=== PATIENT | female | born 1950 | race Caucasian/White ===

== ENCOUNTER 2017-11-20 15:07 | Emergency (ER) | payer MEDICARE, OTHER ==
[~2017-11-20] VITALS: Ht 160 cm; Wt 66.7 kg
[~2017-11-20 15:07] MED LIST: ASPIRIN EC81 MG PO; CLONAZEPAM0.5 MG PO; LINZESS PO; SYNTHROID25 MCG PO; [UNRECOGNIZED DRUG - OTHER] PO
--- OUTSIDE RECORDS SUMMARY | 2017-11-20 15:10 | XMS REPORT | Clinical Summary ---
Author Author [facility] Organization [facility] Address Unknown Phone Unavailable Care Team Providers Care Steamtable Att[employer] Name Role Phone Samson Singh MD PCP Allergies Active Allergy Reactions Severity Noted Date Comments Penicillins Other (See Comments) High 06/02/2016 convulsions Current Medications Prescription Sig. Disp. Refills Start End Date Status Date BIOTIN (APPEAREX ORAL) biotin 43358 mcg daily Active clonAZEPAM (KlonoPIN) 0.5 TAKE ONE (1) TABLET(S) BY Active MG tablet MOUTH THREE TIMES A DAY NEEDED FOR ANXIETY. levothyroxine (SYNTHROID, TAKE 1 TABLET(S) BY MOUTH 3 02/28/20 Active LEVOTHROID) 50 MCG tablet DAILY 16 ASCORBATE CALCIUM Take 1 tablet by mouth Active (VITAMIN C ORAL) daily. pedi mvi no.17 with Chew 1 tablet daily. Active fluoride (MULTIVITAMIN WITH FLUORIDE) 0.5 mg tablet,chewable lisinopril Take 10 mg by mouth Active (PRINIVIL,ZESTRIL) 10 MG daily. tablet coenzyme Q10 200 mg Take 200 mg by mouth Active capsule daily. CALCIUM/MAGNESIUM/VIT D3 Take 1 tablet by mouth Active (CALCIUM daily. Calcium 1200 mg CARB,[id number] D3 and Magnesium 600 mg and ORAL) vitamin d3 1000 Iu BIOTIN-KERATIN ORAL Take 1 tablet by mouth Active daily. linaclotide (LINZESS) 290 TAKE ONE (1) CAPSULE(S) Active mcg capsule BY MOUTH TWICE A DAY. phentermine 30 MG capsule TK ONE C PO QD Active rosuvastatin (CRESTOR) 10 TAKE ONE (1) TABLET(S) BY 3 08/20/19 Active MG tablet MOUTH EVERY DAY. 17 venlafaxine (EFFEXOR) 50 Take 50 mg by mouth 2 Active MG tablet (two) times a day. pantoprazole (PROTONIX) TAKE 1 TABLET BY MOUTH 0 04/02/20 Active 40 MG EC tablet EVERY MORNING AT 600 A.M. 17 predniSONE (DELTASONE) 10 TAKE 4 TABLETS BY MOUTH 0 02/24/20 Active mg tablet EVERY MORNING FOR 5 DAYS 17 THEN 2 EVERY MORNING FOR 5 DAYS THEN 1 EVERY MORNING FOR 5 DAYS WITH FOOD valACYclovir (VALTREX) Take 1,000 mg by mouth 3 0 02/19/20 Active 1000 MG tablet (three) times a day. for 17 7 days traMADol (ULTRAM) 50 mg TAKE ONE (1) TABLET(S) BY 0 02/28/20 Discontin tablet MOUTH 2 HOURS PRIOR TO 16 17 ued PROCEDURE, THEN TAKE 1 TABLET EVERY 6 HOURS NEEDED FOR PAIN. venlafaxine XR TAKE ONE (1) CAPSULE(S) 3 02/28/20 11/29/19 Discontin (EFFEXOR-XR) 150 MG 24 hr BY MOUTH DAILY. 16 17 ued capsule bisacodyl 5 mg tablet TAKE 2 TABLET BY MOUTH 11/29/19 Discontin DIRECTED 17 ued lactulose (CEPHULAC) 10 TAKE 30 ML(S) IN WATER BY 11/29/19 Discontin gram packet MOUTH TWICE A DAY. 17 ued polyethylene glycol USE DIRECTED 11/29/19 Discontin (GAVILYTE-G) 17 ued 236-22.74-6.74 -5.86 gram solution ALPRAZolam (XANAX) 0.25 TAKE ONE-HALF TABLET BY 1 03/16/20 05/25/20 Discontin MG tablet MOUTH EVERY SIX HOURS 17 17 ued NEEDED FOR ANXIETY phendimetrazine tartrate Take 1 tablet by mouth 0 04/20/20 05/25/20 Discontin 105 mg capsule, extended once daily. 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 07/03/2016 Cervico-occipital neuralgia 07/03/2016 Disorder of skin of trunk 07/03/2016 Herniation of cervical intervertebral disc without myelopathy 07/03/2016 Enthesopathy of elbow 07/03/2016 Lesion of ulnar nerve 07/03/2016 Old bucket handle tear medial meniscus 07/03/2016 Pain in extremity 07/03/2016 Cervical spondylosis with myelopathy 07/03/2016 Status post cervical spinal arthrodesis 06/19/2016 Status post cervical spinal fusion 06/18/2016 Encounters Date Type Specialty Care Team Description 11/12/2017 Office Visit Neurosurgery Darien Enriquez MD Bilateral carpal tunnel syndrome (Primary Dx); Cervical radiculopathy; Lesions of both ulnar nerves; Status post cervical spinal fusion; Status post cervical spinal arthrodesis 11/12/2017 [facility] Radiology Darien Enriquez MD Myelopathy, Encounter spondylogenic, cervical; Cervicalgia 11/12/2017 [facility] Radiology Darien Enriquez MD Cervical spondylosis with Encounter myelopathy; Myelopathy, spondylogenic, cervical; Cervicalgia; Arthritis of shoulder region, right; Acute strain of neck muscle, initial encounter 11/05/2017 Procedure Pass Radiology 11/05/2017 Orders Only Gaby Buckley Myelopathy, spondylogenic, cervical (Primary Dx); Cervicalgia 05/25/2017 Office Visit Darien Hopson MD 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 (Primary Dx); Status post cervical spinal arthrodesis 05/25/2017 [facility] Radiology Darien Enriquez MD Myelopathy, Encounter spondylogenic, cervical; Cervicalgia; Cervical spondylosis with myelopathy; Acute strain of neck muscle, initial encounter; Arthritis of shoulder region, right; Arthrodesis status 05/25/2017 Orders Only Gaby Buckley Cervical spondylosis with myelopathy (Primary Dx); Myelopathy, spondylogenic, cervical; Cervicalgia; Arthritis of shoulder region, right; Acute strain of neck muscle, initial encounter 05/12/2017 Orders Only Gaby Buckley Myelopathy, spondylogenic, cervical (Primary Dx); Cervicalgia; Cervical spondylosis with myelopathy; Acute strain of neck muscle, initial encounter; Arthritis of shoulder region, right; Arthrodesis status 01/15/2017 Telephone Orthopedic Surgery Kevon Lao MA 12/01/2016 Office Visit Orthopedic Surgery David Franco MD Rotator cuff impingement syndrome, right (Primary Dx) 11/28/2016 Office Visit Neurosurgery Darien Enriquez MD Cervical strain, acute, initial encounter (Primary Dx) 11/28/2016 [facility] Radiology Darien Enriquez MD Arthrodesis status; Encounter Myelopathy, spondylogenic, cervical 11/26/2016 [facility] Radiology David Franco MD Incomplete tear of right Encounter rotator cuff 11/26/2016 [facility] Radiology David Franco MD Incomplete tear of right Encounter rotator cuff 09/29/2016 Procedure Pass Radiology after 11/19/2016 Family History Medical History Relation Name Comments Osteoporosis Brother Scoliosis Brother Heart disease Maternal Grandfather Rheumatologic disease Mother Scoliosis Mother Relation Name Status Comments Brother Brother Maternal Grandfather Mother Social History Tobacco Use Types Packs/Day Years Used Date Never Smoker Smokeless Tobacco: Never Used Alcohol Use Drinks/Week oz/Week Comments Yes 1 Cans of Occasional drink in afternoon beer 1 Standard drinks or equivalent Sex Assigned at Date Recorded Not on file Last Filed Vital Signs Vital Sign Reading Time Taken Blood Pressure 117/84 11/28/2016 11:57 AM CDT Pulse 89 11/28/2016 11:57 AM CDT Temperature - - Respiratory Rate 16 11/26/2016 1:38 PM CDT Oxygen Saturation - - Inhaled Oxygen - - Concentration Weight 68.5 kg (151 lb) 11/12/2017 12:33 PM CDT Height 160 cm (5' 3") 11/12/2017 12:33 PM CDT Body Mass Index 26.75 11/12/2017 12:33 PM CDT Plan of Treatment Health Maintenance Due Date Last Done Comments COLONOSCOPY 1998 MAMMOGRAM 1998 ZOSTER VACCINE 2008 PNEUMOCOCCAL 2013 POLYSACCHARIDE VACCINE AGE 65 AND OVER PNEUMOCOCCAL-13 2013 INFLUENZA VACCINE 03/03/2018 Implants Implanted Type Area [facility] President Device Expiration Model / Identifier Date Serial / Lot Putty Clgn [facility] 0.75cc Human Anterior: [employer] 2019 [id number] / - [id number] - [id number] Tissue N/A SPINAL AND [id number] / Implanted: Qty: 1 on 06/18/2016 by Implants BIOLOGICS [id number] Darien Enriquez MD Instrument [id number] Kee 2 [place] IPM N/A: N/A [employer] [id number] / Trocar, Kee Needle (Other - Tl IMPLANT SOFAMOR DANEK / Retractor / Access), Disposable - DEVICES [id number] Implanted: Qty: 1 on 06/18/2016 by Darien Enriquez MD Cage [id number] Anatomic Ptc [id number] IPM N/A: N/A [employer] 2022 [id number] / - [id number] IMPLANT SOFAMOR DANEK / Implanted: Qty: 1 on 06/18/2016 by DEVICES [id number] Darien Enriquez MD Cage [id number] Anatomic Ptc [id number] IPM N/A: N/A [employer] 2017 [id number] / - [id number] IMPLANT SOFAMOR DANEK / Implanted: 06/18/2016 (Quantity not DEVICES [id number] on file) Pin Distrctn [place] 12mm Strl - Neurosurgi N/A: N/A AESCULAP SPINE [id number] / [id number] / Implanted: Qty: 2 on 06/18/2016 by Implants [id number] Darien Enriquez MD Plate Cerv 23mm [place] Elite - Spinal N/A: N/A [employer] [id number] / [id number] Implants SPINAL AND / Implanted: 06/18/2016 (Quantity not BIOLOGICS on file) Screw Spinal Slf-Drl Jacob 4x15mm - Spinal N/A: N/A [employer] [id number] / [id number] Implants SPINAL AND / Implanted: 06/18/2016 (Quantity not BIOLOGICS on file) Procedures Procedure Name Priority Date/Time Associated Diagnosis Comments CO ARTHROCENTESIS Routine 12/04/2016 Rotator cuff impingement Results for this ASPIR&/INJ MAJOR JT/BURSA 9:32 AM CDT syndrome, right procedure are in the W/O US results section. after 11/19/2016 Results * MRI Cervical Spine W Wo Contrast (11/12/2017 1:08 PM) Specimen Performing Laboratory [address] [address] Narrative EXAMINATION: MRI CERVICAL SPINE W WO CONTRAST CLINICAL HISTORY: M47.12 Other spondylosis with myelopathycervical region, M54.2 Cervicalgia, right arm weaknessneck pain COMPARISON:Cervical MRI dated May 27, 2016 TECHNIQUE: Multiplanar multisequence pre and post contrast enhanced examination was performed of the cervical spine. FINDINGS: Vertebral body heights are maintained. The cervicomedullary junction is unremarkable. No cord signal abnormality identified. No focal marrow lesions. No masses are present in the visualized prevertebral soft tissues. No enhancing lesion identified on the postcontrast images. Anterior plate and screws are noted at C4-5. Axial images through the disc spaces demonstrate the following: C1-C2: There is narrowing of the atlantoaxial interval with spurring. There is no significant stenosis. C2-C3: No significant posterior disc disease, spinal canal or neural foraminal stenosis. C3-C4: Uncovertebral arthrosis and facet disease results in mild left foraminal narrowing. C4-C5: Anterior fusion is noted at this level. There is minimal bilateral foraminal narrowing. The canal is patent. C5-C6: No significant posterior disc disease, spinal canal or neural foraminal stenosis. C6-C7: There is disc bulge with mild effacement ventral thecal sac without narrowing. AP dimension still measures 9.9 mm. There is minimal left foraminal narrowing. C7-T1: No significant posterior disc disease, spinal canal or neural foraminal stenosis. No significant posterior disc disease, spinal canal or neural foraminal stenosis at other visualized levels. IMPRESSION: Postoperative fusion changes are noted anteriorly at C4-5 with good alignment of the cervical spine without significant canal or foraminal stenosis. No acute osseous abnormality or enhancing abnormality identified. [id number] Procedure Note Hm Interface, Radiology Results - 11/12/2017 4:01 PM CDT EXAMINATION: MRI CERVICAL SPINE W WO CONTRAST CLINICAL HISTORY: M47.12 Other spondylosis with myelopathy cervical region, M54.2 Cervicalgia, right arm weakness neck pain COMPARISON: Cervical MRI dated May 27, 2016 TECHNIQUE: Multiplanar multisequence pre and post contrast enhanced examination was performed of the cervical spine. FINDINGS: Vertebral body heights are maintained. The cervicomedullary junction is unremarkable. No cord signal abnormality identified. No focal marrow lesions. No masses are present in the visualized prevertebral soft tissues. No enhancing lesion identified on the postcontrast images. Anterior plate and screws are noted at C4-5. Axial images through the disc spaces demonstrate the following: C1-C2: There is narrowing of the atlantoaxial interval with spurring. There is no significant stenosis. C2-C3: No significant posterior disc disease, spinal canal or neural foraminal stenosis. C3-C4: Uncovertebral arthrosis and facet disease results in mild left foraminal narrowing. C4-C5: Anterior fusion is noted at this level. There is minimal bilateral foraminal narrowing. The canal is patent. C5-C6: No significant posterior disc disease, spinal canal or neural foraminal stenosis. C6-C7: There is disc bulge with mild effacement ventral thecal sac without narrowing. AP dimension still measures 9.9 mm. There is minimal left foraminal narrowing. C7-T1: No significant posterior disc disease, spinal canal or neural foraminal stenosis. No significant posterior disc disease, spinal canal or neural foraminal stenosis at other visualized levels. IMPRESSION: Postoperative fusion changes are noted anteriorly at C4-5 with good alignment of the cervical spine without significant canal or foraminal stenosis. No acute osseous abnormality or enhancing abnormality identified. [facility] [id number] * Estimated GFR (11/12/2017 12:33 PM) Component Value Ref Range GFR Non Af Amer 83 mL/min/1.73 m2 GFR Af Amer >90 mL/min/1.73 m2 Comment: Chronic kidney disease: <60 mL/min/1.73m2 Kidney failure: <15 mL/min/1.73m2 The estimated GFR is calculated from the IDMS-traceable Modification of Diet in Renal Disease Equation. The accuracy of the calculation is poor when the creatinine is normal. Calculated values >90 mL/min/1.73m2 are not reported. This equation has not been validated in children (<18 years), women, the elderly (>70 years), or ethnic groups other than Caucasians and Americans. Specimen Performing Laboratory Blood [facility] DEPARTMENT OF PATHOLOGY AND GENOMIC MEDICINE [address] [place] [id number] * POC creatinine (11/12/2017 12:33 PM) Component Value Ref Range POC creatinine 0.7 0.5 - 0.9 mg/dl Comment: Meter ID: [id number] Lead Software Engineer: Jewel Ribera Specimen Performing Laboratory Blood [facility] DEPARTMENT OF PATHOLOGY AND GENOMIC MEDICINE [address] [place] [id number] * XR Cervical Spine Complete w flex/ext (11/12/2017 11:55 AM) Only the most recent of 3 results within the time period is included. Specimen Performing Laboratory [facility] [address] [place] [address] Narrative EXAMINATION: XR CERVICAL SPINE COMPLETE W FLEX EXT CLINICAL HISTORY: M47.12 Other spondylosis with myelopathycervical region, M47.12 Other spondylosis with myelopathycervical region, f u 1 month due to recurring pain around neck COMPARISON:Cervical x-ray dated May 25, 2017 IMPRESSION: 7 views of the cervical spine were obtained. Anterior fusion hardware is again noted at C4-5 with interbody graft. Flexion-extension imaging shows no significant interbody motion between flexion or extension. There is mild fixed 1 to 2 mm anterolisthesis of C5. There is osteophytosis noted anteriorly at C6-7. Oblique images shows no significant osseous foraminal narrowing on the right. There is suggestion of some degree of osseous foraminal narrowing on the left at C6-7. Correlate for a left C7 radiculopathy to determine significance. There is no fracture, facet joint widening or acute osseous abnormality identified. Hardware appears intact and in stable position. [facility] [id number] Procedure Note Interface, Radiology Results - 11/12/2017 1:58 PM CDT EXAMINATION: XR CERVICAL SPINE COMPLETE W FLEX EXT CLINICAL HISTORY: M47.12 Other spondylosis with myelopathy cervical region, M47.12 Other spondylosis with myelopathy cervical region, f u 1 month due to recurring pain around neck COMPARISON: Cervical x-ray dated May 25, 2017 IMPRESSION: 7 views of the cervical spine were obtained. Anterior fusion hardware is again noted at C4-5 with interbody graft. Flexion-extension imaging shows no significant interbody motion between flexion or extension. There is mild fixed 1 to 2 mm anterolisthesis of C5. There is osteophytosis noted anteriorly at C6-7. Oblique images shows no significant osseous foraminal narrowing on the right. There is suggestion of some degree of osseous foraminal narrowing on the left at C6-7. Correlate for a left C7 radiculopathy to determine significance. There is no fracture, facet joint widening or acute osseous abnormality identified. Hardware appears intact and in stable position. [id number] * Large Joint Arthrocentesis (12/04/2016 9:32 AM) Narrative David Franco MD 12/04/20169:32 AM Large Joint Arthrocentesis Consent given by: patient Site marked: site marked Timeout: Immediately prior to procedure a time out was called to verify the correct patient, procedure, equipment, it support engineer and site/side marked as required Supporting Documentation Indications: pain Procedure Details Preparation: Patient was prepped and draped in the usual sterile fashion Ultrasound guided: no Location: shoulder - R glenohumeral Right side: Needle size: 22 G Approach: posterior Right shoulder medications administered: 80 mg methylPREDNISolone acetate 80 mg/mL; 10 mL lidocaine 10 mg/mL (1 %); 2 mL bupivacaine 0.5 % (5 mg/mL) Patient tolerance: patient tolerated the procedure well with no immediate complications * MRI Shoulder W Contrast Right (11/26/2016 3:27 PM) Specimen Performing Laboratory [address] [address] Narrative EXAMINATION:MRI SHOULDER W CONTRAST RIGHT CLINICAL HISTORY:BONE PAINSHOULDER Order diagnosis - Incomplete rotator cuff tear or rupture of right shouldernot specified as traumatic TECHNIQUE:Multiplanar multisequence MR imaging of the right shoulder was performed following intra-articular administration of gadolinium contrast. COMPARISON:Radiograph, 06/02/2016 IMPRESSION: ROTATOR CUFF: Motion artifact degrades image quality and decreases sensitivity of exam. A high-grade undersurface tear is noted posteriorly in the distal supraspinatus tendon measuring 9 mm sagittal with retraction up to 6 mm, and there is a small amount of contrast in the overlying subacromial-subdeltoid bursa, indicating a tiny site of communication through the bursal surface, likely posteriorly and proximally, series 7 images 4 and 5. Detail limited by motion artifact. No significant muscular atrophy. Mostly interstitial partial-thickness tearing anteriorly in the infraspinatus distal tendon, with a tiny site of truncation through the articular surface posteriorly, series 7 image 5. Overall, this tear measures 10 mm sagittal, with retraction up to 12 mm, and involves greater than 50% of tendon thickness. No significant atrophy. Teres minor is well-maintained. Subscapularis tendinosis, mild. LABRUM: Degenerative fraying of the superior labrum. No discrete tear identified. BICEPS TENDON: The long head of the biceps tendon is within the bicipital groove. The biceps labral complex is intact. GLENOHUMERAL JOINT: Alignment is well maintained.No focal cartilage defects identified. BONE MARROW: Cystic formation in the greater tuberosity humeral head related to the aforementioned rotator cuff pathology. A stippled T2 hyperintense intramedullary lesion in the humeral neck measuring 14 mm indicative of a benign enchondroma. Reactive change secondary to AC joint arthrosis. AC JOINT: Hypertrophic changes AC joint degenerative in etiology. Abnormal marrow signal in both sides of the joint, with mild capsular edema and a tiny effusion, indicating recent mild AC sprain and stress response. Coracoclavicular ligament is well-maintained. Acromion has a horizontal lateral slope and is type II morphology. Slight downward anterior slope. SOFT TISSUES: Axillary pouch intact. SUMMARY: 1. High-grade undersurface supraspinatus tear with a full-thickness perforation through the bursal surface posteriorly. High-grade undersurface infraspinatus tear. Mild subscapularis tendinosis. 2.Recent mild AC sprain, and bone contusion or stress response on both sides of the joint. [facility]-[id number] Procedure Note [facility], Radiology Results Incoming - 11/26/2016 4:01 PM CDT EXAMINATION: MRI SHOULDER W CONTRAST RIGHT CLINICAL HISTORY: BONE PAIN SHOULDER Order diagnosis - Incomplete rotator cuff tear or rupture of right shoulder not specified as traumatic TECHNIQUE: Multiplanar multisequence MR imaging of the right shoulder was performed following intra-articular administration of gadolinium contrast. COMPARISON: Radiograph, 06/02/2016 IMPRESSION: ROTATOR CUFF: Motion artifact degrades image quality and decreases sensitivity of exam. A high-grade undersurface tear is noted posteriorly in the distal supraspinatus tendon measuring 9 mm sagittal with retraction up to 6 mm, and there is a small amount of contrast in the overlying subacromial-subdeltoid bursa, indicating a tiny site of communication through the bursal surface, likely posteriorly and proximally, series 7 images 4 and 5. Detail limited by motion artifact. No significant muscular atrophy. Mostly interstitial partial-thickness tearing anteriorly in the infraspinatus distal tendon, with a tiny site of truncation through the articular surface posteriorly, series 7 image 5. Overall, this tear measures 10 mm sagittal, with retraction up to 12 mm, and involves greater than 50% of tendon thickness. No significant atrophy. Teres minor is well-maintained. Subscapularis tendinosis, mild. LABRUM: Degenerative fraying of the superior labrum. No discrete tear identified. BICEPS TENDON: The long head of the biceps tendon is within the bicipital groove. The biceps labral complex is intact. GLENOHUMERAL JOINT: Alignment is well maintained. No focal cartilage defects identified. BONE MARROW: Cystic formation in the greater tuberosity humeral head related to the aforementioned rotator cuff pathology. A stippled T2 hyperintense intramedullary lesion in the humeral neck measuring 14 mm indicative of a benign enchondroma. Reactive change secondary to AC joint arthrosis. AC JOINT: Hypertrophic changes AC joint degenerative in etiology. Abnormal marrow signal in both sides of the joint, with mild capsular edema and a tiny effusion, indicating recent mild AC sprain and stress response. Coracoclavicular ligament is well-maintained. Acromion has a horizontal lateral slope and is type II morphology. Slight downward anterior slope. SOFT TISSUES: Axillary pouch intact. SUMMARY: 1. High-grade undersurface supraspinatus tear with a full-thickness perforation through the bursal surface posteriorly. High-grade undersurface infraspinatus tear. Mild subscapularis tendinosis. 2.Recent mild AC sprain, and bone contusion or stress response on both sides of the joint. [facility]-[id number] * FL Arthrogram Shoulder Right (11/26/2016 3:00 PM) Specimen Performing Laboratory [facility] [address] [place] [address] Narrative [place] ARTHROGRAM SHOULDER RIGHT CLINICAL INDICATION:SHOULDER PAINROTATOR CUFF TEAR IMPINGEMENT SUSPECTED Order diagnosis - Incomplete rotator cuff tear or rupture of right shouldernot specified as traumatic COMMENTS: After obtaining appropriate informed consent specifically explaining the risk of infection, pain, bleeding, allergic reaction and/or tissue damage amongst other possibilities and explaining other options, the right shoulder was prepped and draped in standard fashion. Under fluoroscopic guidance and using standard sterile technique with local lidocaine for anesthesia, a 22 gauge needle was advanced into the joint space.Intra-articular placement was confirmed by a test injection of iodinated contrast. Subsequently, dilute gadolinium and iodinated contrast ( in approximately 1:100 dilution) was injected to fill the joint space. Arthrographic images demonstrate no leak of contrast from the glenohumeral articulation, artifact noted. The needle was removed. The patient tolerated procedure well without immediate complicating process evident. DOSE: 2.41 mGy (ka,r) IMPRESSION: Successful right shoulder injection as detailed above.Correlation with MR arthrogram to follow recommended. Thank you for allowing us to participate in the care of your patient [facility]-[id number] Procedure Note Hm [facility], Radiology Results Incoming - 11/26/2016 3:29 PM CDT FL ARTHROGRAM SHOULDER RIGHT CLINICAL INDICATION: SHOULDER PAIN ROTATOR CUFF TEAR IMPINGEMENT SUSPECTED Order diagnosis - Incomplete rotator cuff tear or rupture of right shoulder not specified as traumatic COMMENTS: After obtaining appropriate informed consent specifically explaining the risk of infection, pain, bleeding, allergic reaction and/or tissue damage amongst other possibilities and explaining other options, the right shoulder was prepped and draped in standard fashion. Under fluoroscopic guidance and using standard sterile technique with local lidocaine for anesthesia, a 22 gauge needle was advanced into the joint space. Intra-articular placement was confirmed by a test injection of iodinated contrast. Subsequently, dilute gadolinium and iodinated contrast ( in approximately 1:100 dilution) was injected to fill the joint space. Arthrographic images demonstrate no leak of contrast from the glenohumeral articulation, artifact noted. The needle was removed. The patient tolerated procedure well without immediate complicating process evident. DOSE: 2.41 mGy (ka,r) IMPRESSION: Successful right shoulder injection as detailed above. Correlation with MR arthrogram to follow recommended. Thank you for allowing us to participate in the care of your patient [facility]-[id number] after 11/19/2016 Insurance Payer Benefit Subscriber ID Type Phone Address Plan / Group MEDICARE MEDICARE xxxxxxxxxx Medicare [place], [place] PART A AND B [employer]
[2017-11-20] MEDS ORDERED: SODIUM CHLORIDE 0.9% 1000ML 1,000 ML IV STA (15:17)
[2017-11-20] MEDS ORDERED: MORPHINE SULFATE 4 MG/ML SYR IV STA (15:17)
[2017-11-20] MEDS ORDERED: ONDANSETRON HCL INJ 2 MG/ML VIAL IV STA (15:17)
[2017-11-20] MEDS ORDERED: MORPHINE SULFATE 2 MG/ML SYR ONE (15:30)
[2017-11-20] MEDS ORDERED: MAGNESIUM/ALUMINUM/SIMETHICONE 30 ML UDC PO ONE (15:30)
[2017-11-20] MEDS ORDERED: LIDOCAINE VISC 2% SOLN 15 ML UDC PO ONE (15:30)
[2017-11-20] MEDS ORDERED: DONNATAL/LIDOCAINE/MAALOX 30 ML SUSP PO ONE (15:45)
--- NOTE | 2017-11-20 16:03 | Diagnostic Imaging Report ---
PROCEDURE: A single AP view of the chest. COMPARISON: None. INDICATIONS: LEFT SIDE ABDOMINAL PAIN, TODAY, NAUSEA FINDINGS: Lines/tubes: None. Lungs: The lungs are well inflated and clear. There is no evidence of pneumonia or pulmonary edema. Pleura: There is no pleural effusion or pneumothorax. Heart and mediastinum: The heart and the mediastinum are unremarkable. Bones: No acute bony abnormality. IMPRESSION: 1. No acute cardiopulmonary abnormalities. Marvin Elizondo M.D. Dictated by: Marvin Elizondo M.D. on 11/20/2017 at 16:03 Electronically approved by: Marvin Elizondo M.D. on 11/20/2017 at 16:03
[2017-11-20 16:20] LABS: BASOPHILS % 0.3 % (0.0-1.0); EOSINOPHILS # (AUTO) 0.1 (0.0-0.4); EOSINOPHILS % 1.8 % (0.0-6.0); HEMATOCRIT 42.5 % (34.2-44.1); HEMOGLOBIN 14.3 g/dL (12.0-16.0); LYMPHOCYTES # (AUTO) 2.9 (1.0-3.2); LYMPHOCYTES % 36.6 % (18.0-39.1); MEAN CORPUSCULAR HEMOGLOBIN 30.4 pg (28-32); MEAN CORPUSCULAR HGB CONC 33.6 g/dL (31-35); MEAN CORPUSCULAR VOLUME 90.4 fL (81-99); MONOCYTES # (AUTO) 0.6 (0.2-0.8); MONOCYTES % 8.1 % (4.4-11.3); NEUTROPHILS # (AUTO) 4.2 (2.1-6.9); NEUTROPHILS % 52.9 % (38.7-80.0); PLATELET COUNT 249 x10e3/uL (140-360); RED CELL DISTRIBUTION WIDTH 12.4 % (11.7-14.4)
[2017-11-20 16:22] LABS: CLARITY,URINE CLEAR (CLEAR); COLOR,URINE YELLOW (YELLOW); KETONES,URINE NEGATIVE (NEGATIVE); NITRITE,URINE NEGATIVE (NEGATIVE); PROTEIN,URINE DIPSTICK NEGATIVE (NEGATIVE); URINE UROBILINOGEN 1 mg/dL (0.2 - 1)
[2017-11-20 16:23] LABS: BILIRUBIN,URINE NEGATIVE (NEGATIVE); LEUKOCYTE ESTERASE ,URINE NEGATIVE (NEGATIVE)
[2017-11-20 16:27] LABS: INR 0.91; PROTHROMBIN TIME 11.5 seconds (11.9-14.5)
[2017-11-20 16:30] LABS: PARTIAL THROMBOPLASTIN TIME 23.1 seconds (23.8-35.5)
[2017-11-20 16:34] LABS: BACTERIA,URINE RARE /HPF; EPITHELIAL CELLS,URINE MODERATE /LPF; MUCUS,URINE MANY (RARE); RBC,URINE 0-5 /HPF (0-5); WBC,URINE (MAN) 0-5 /HPF (0-5)
[2017-11-20 16:38] LABS: ALANINE AMINOTRANSFERASE 32 IU/L (0-55); ALBUMIN 4.1 g/dL (3.5-5.0); ALBUMIN/GLOBULIN RATIO 1.4 (0.8-2.0); ALKALINE PHOSPHATASE 79 IU/L (40-150); AMYLASE 52 U/L (25-125); ANION GAP 14.6 mmol/L (8-16); BLOOD UREA NITROGEN 16 mg/dL (7-26); BUN/CREATININE RATIO 21 (6-25); CALCIUM 9.7 mg/dL (8.4-10.2); CARBON DIOXIDE 26 mmol/L (22-29); CHLORIDE 101 mmol/L (98-107); CREATINE KINASE 66 IU/L (29-168); CREATININE, SERUM 0.76 mg/dL (0.57-1.11); EST GLOMERULAR FILTRATION RATE > 60 ML/MIN (60-); GLUCOSE 106 mg/dL (74-118); LIPASE 35 U/L (8-78); POTASSIUM 3.6 mmol/L (3.5-5.1); SODIUM 138 mmol/L (136-145)
--- NOTE | 2017-11-20 17:51 | Diagnostic Imaging Report ---
PROCEDURE: CT ABDOMEN AND PELVIS WITH CONTRAST TECHNIQUE: The abdomen and pelvis were scanned utilizing a multidetector helical scanner from the diaphragm to the lesser trochanter after the IV administration of 100 cc of Isovue 370. Coronal and sagittal multiplanar reformations were obtained. COMPARISON: None. INDICATIONS: left side abdominal pain FINDINGS: LOWER THORAX: 6-7 mm pulmonary nodule in the left lower lobe (series 2, image 2). HEPATOBILIARY: Normal hepatic size and contour. No focal hepatic lesions. No intra-or extrahepatic biliary ductal dilation. Moderate diffuse gallbladder wall thickening, which measures approximately 5 mm. No radiopaque stones are identified. No pericholecystic fluid. SPLEEN: No splenomegaly. PANCREAS: No focal masses or ductal dilatation. A 4 mm hypodense lesion in the distal pancreatic tail (coronal image 50, and sagittal image 100) measures fat density and likely represents invagination of peripancreatic fat. ADRENALS: No adrenal nodules. KIDNEYS/URETERS: No hydronephrosis, stones, or solid mass lesions. PELVIC ORGANS/BLADDER: Bladder is unremarkable. Uterus is absent. No adnexal masses. PERITONEUM / RETROPERITONEUM: No free air or fluid. LYMPH NODES: No lymphadenopathy. VESSELS: Atherosclerotic calcification of the infrarenal abdominal aorta. Celiac trunk, superior and inferior mesenteric, and bilateral renal arteries are patent. Portal, superior mesenteric, and splenic veins are patent. GI TRACT: No bowel dilation or evidence of obstruction. Appendix is well identified and normal in caliber. No pericolonic inflammatory changes. BONES AND SOFT TISSUES: No acute bony abnormalities. No aggressive lytic lesions. Soft tissues are grossly unremarkable. Calcified injection granuloma in the left gluteal region. IMPRESSION: 1. No acute abdominopelvic abnormalities. Specifically, no acute abnormal findings in the left abdomen to explain the patient's pain. 2. Moderate circumferential gallbladder wall thickening. No radiopaque stones or pericholecystic fluid are identified. No biliary ductal dilation. Right upper quadrant ultrasound would be helpful for further evaluation. Marvin Elizondo M.D. Dictated by: Marvin Elizondo M.D. on 11/20/2017 at 17:52 Electronically approved by: Marvin Elizondo M.D. on 11/20/2017 at 17:52
[2017-11-20 18:53] VITALS: BP 125/71
[2017-11-21] MEDS ORDERED: IOPAMIDOL 370 MG/ML 200 ML INFUS..BTL INJ ONE (03:59)
[2017-11-21] MEDS ORDERED: SODIUM CHLORIDE 0.9% 50ML 50 ML ONE (03:59)
== END 2017-11-20 18:56 | disposition home or self-care (01) ==
LOC: ER 15:07
DX: R10.13 Epigastric pain (principal); R10.32 Left lower quadrant pain; R11.0 Nausea; K29.00 Acute gastritis without bleeding
CPT/HCPCS: 36415; 71045; 74177; 80053; 81001; 82150; 82550; 82553; 83690; 84484; 85025; 85610; 85730; 87086; 93005; 96374; 99284; J2270; J2405; J7030

== ENCOUNTER 2018-06-01 13:00 | Outpatient (RCR) | payer MEDICARE, OTHER | END 2018-06-02 | LOC: PT 13:00 | PROVIDERS: ATTEND Neurological Surgery | DX: M50.120 Mid-cervical disc disorder, unspecified level (principal); M62.81 Muscle weakness (generalized) | CPT/HCPCS: 97010; 97110 ×3; 97140 ×2; 97162; G8984; G8985 ==

== ENCOUNTER 2018-06-10 13:00 | Outpatient (RCR) | payer MEDICARE, OTHER | END 2018-07-02 | LOC: PT 13:00 | PROVIDERS: ATTEND Neurological Surgery | DX: M50.120 Mid-cervical disc disorder, unspecified level (principal); M62.81 Muscle weakness (generalized) | CPT/HCPCS: 97110 ×2; G8985; G8986 ==

== ENCOUNTER → 2024-09-29 | Day surgery (SDC) | payer MEDICARE, OTHER ==
[2024-09-27 11:02] LABS: BASOPHILS % 0.5 % (0.0-1.0); EOSINOPHILS # (AUTO) 0.1 (0.0-0.4); EOSINOPHILS % 3.3 % (0.0-6.0); HEMATOCRIT 40.2 % (34.2-44.1); HEMOGLOBIN 13.5 g/dL (12.0-16.0); LYMPHOCYTES # (AUTO) 1.7 (1.0-3.2); MEAN CORPUSCULAR HEMOGLOBIN 30.5 pg (28-32); MEAN CORPUSCULAR HGB CONC 33.6 g/dL (31-35); MONOCYTES # (AUTO) 0.5 (0.2-0.8); MONOCYTES % 10.6 % (4.4-11.3); NEUTROPHILS # (AUTO) 1.9 (2.1-6.9); NEUTROPHILS % 45.4 % (38.7-80.0); PLATELET COUNT 187 x10e3/uL (140-360); RED BLOOD COUNT 4.42 x10e6/uL (3.6-5.1); RED CELL DISTRIBUTION WIDTH 12.8 % (11.7-14.4); WHITE BLOOD COUNT 4.25 x10e3/uL (4.8-10.8)
[~2024-09-29] MED LIST changes: +BENEFIBER1 EAC1 PO; +CLOBETASOL PROP15 G1 TOP; +ESTRACE42.5 GM VG; +GATIFLOXACIN(OPTH) 5 ML LIQD ONE; +HYDROXYZINE HCL25 MG PO; +LEVOCETIRIZINE D5 MG PO; +LEVOTHYROXINE50 MCG PO; +LIDOCAINE HCL 2% LOCAL INJ 5 ML SDV VIAL INJ ONE; +LOSARTAN POTASS25 MG PO; +MAGNESIUM100 MG PO; +MULTI-VITAMIN1 EACH PO; +OMEPRAZOLE40 MG PO; +ONDANSETRON HCL INJ 2MG/ML 2ML 2 MG/ML VIAL ONE; +POTASSIUM99 M1 PO; +PROPOFOL IV EMULSION 10 MG/ML 20 ML VIAL ONE; +ROSUVASTATIN CA10 MG PO; +TETRACAINE HCL 0.5% OPTH SOLN 4 ML BTL ONE; +TUMERIC PO; +VITAMIN B121000 MCG PO; +WELLBUTRIN XL300 MG PO; +ZINC10 MG PO; +[UNRECOGNIZED DRUG - OTHER] PO
[2024-09-29] MEDS: LACTATED RINGER'S 1,000 ML ONE (07:54)
[2024-09-29] MEDS: PHENYLEPHRINE HCL 2 ML DROPS ONE (07:55)
[2024-09-29] MEDS: CYCLOPENTOLATE HCL 2% OPTH SOLN 2 ML BTL OP ONE (07:55)
[2024-09-29] MEDS: GATIFLOXACIN(OPTH) 5 ML LIQD ONE (07:56)
[2024-09-29 08:23] LABS: ANION GAP 15.3 mmol/L (8-16); CALCIUM 8.8 mg/dL (8.4-10.2); CREATININE, SERUM 0.81 mg/dL (0.57-1.11); POTASSIUM 4.3 mmol/L (3.5-5.1)
[2024-09-29 08:58] VITALS: TEMP 98
[2024-09-29] MEDS: ACETAMINOPHEN/CODEINE 300MG - 30MG TAB ONE (09:05)
[2024-09-29 09:10] VITALS: BP 156/94; PULSE 67; RESP 16; O2SAT 98
== END | disposition home or self-care (01) ==
LOC: OR 06:07
PROVIDERS: ATTEND Ophthalmology
DX: H25.11 Age-related nuclear cataract, right eye (principal); G47.33 Obstructive sleep apnea (adult) (pediatric); I10 Essential (primary) hypertension; E78.5 Hyperlipidemia, unspecified; E03.9 Hypothyroidism, unspecified; K21.9 Gastro-esophageal reflux disease without esophagitis; F32.A Depression, unspecified; Z88.0 Allergy status to penicillin; Z01.810 Encounter for preprocedural cardiovascular examination; Z01.812 Encounter for preprocedural laboratory examination; Z79.899 Other long term (current) drug therapy; Z86.73 Personal history of transient ischemic attack (TIA), and cerebral infarction without residual deficits
CPT/HCPCS: 36415 ×2; 66984; 80048; 85025; 93005; J2003; J2405; J2704; J7121; V2632

== ENCOUNTER → 2024-11-24 | Day surgery (SDC) | payer MEDICARE ==
[2024-11-23 14:53] LABS: BASOPHILS % 0.5 % (0.0-1.0); EOSINOPHILS # (AUTO) 0.2 (0.0-0.4); EOSINOPHILS % 2.7 % (0.0-6.0); HEMATOCRIT 41.8 % (34.2-44.1); HEMOGLOBIN 14.1 g/dL (12.0-16.0); LYMPHOCYTES # (AUTO) 2.2 (1.0-3.2); LYMPHOCYTES % 35.7 % (18.0-39.1); MEAN CORPUSCULAR HEMOGLOBIN 30.9 pg (28-32); MEAN CORPUSCULAR HGB CONC 33.7 g/dL (31-35); MEAN CORPUSCULAR VOLUME 91.7 fL (81-99); MONOCYTES # (AUTO) 0.6 (0.2-0.8); MONOCYTES % 9.1 % (4.4-11.3); NEUTROPHILS # (AUTO) 3.2 (2.1-6.9); NEUTROPHILS % 51.8 % (38.7-80.0); PLATELET COUNT 210 x10e3/uL (140-360); RED BLOOD COUNT 4.56 x10e6/uL (3.6-5.1); RED CELL DISTRIBUTION WIDTH 13.1 % (11.7-14.4); WHITE BLOOD COUNT 6.25 x10e3/uL (4.8-10.8)
[2024-11-23 15:17] LABS: ANION GAP 15.1 mmol/L (8-16); CALCIUM 9.1 mg/dL (8.4-10.2); CREATININE, SERUM 0.82 mg/dL (0.57-1.11); POTASSIUM 4.1 mmol/L (3.5-5.1)
[~2024-11-24] MED LIST changes: +DEXAMETHASONE SOD PHOS INJ 4 MG/ML SDV ONE; +FENTANYL CITRATE/PF 100MCG/2 ML INJ ONE; +GLYCOPYRROLATE INJ 0.2 MG/ML VIAL ONE; -TETRACAINE HCL 0.5% OPTH SOLN 4 ML BTL ONE; +TYLENOL #3 PO
[2024-11-24] MEDS: PHENYLEPHRINE HCL 2 ML DROPS ONE (06:05)
[2024-11-24] MEDS: LACTATED RINGER'S 1,000 ML ONE (06:05)
[2024-11-24] MEDS: TETRACAINE HCL 0.5% OPTH SOLN 4 ML BTL ONE (06:05)
[2024-11-24] MEDS: CYCLOPENTOLATE HCL 2% OPTH SOLN 2 ML BTL OP ONE (06:05)
[2024-11-24] MEDS: GATIFLOXACIN(OPTH) 5 ML LIQD ONE (06:05)
[2024-11-24 08:30] VITALS: BP 137/78; PULSE 74; RESP 16; TEMP 97.1; O2SAT 98
== END | disposition home or self-care (01) ==
LOC: OR 05:17
PROVIDERS: ATTEND Ophthalmology
DX: H25.12 Age-related nuclear cataract, left eye (principal); G47.33 Obstructive sleep apnea (adult) (pediatric); I10 Essential (primary) hypertension; E78.5 Hyperlipidemia, unspecified; K21.9 Gastro-esophageal reflux disease without esophagitis; E03.9 Hypothyroidism, unspecified; F41.9 Anxiety disorder, unspecified; F32.A Depression, unspecified; Z88.0 Allergy status to penicillin; Z01.812 Encounter for preprocedural laboratory examination; Z79.899 Other long term (current) drug therapy; Z86.73 Personal history of transient ischemic attack (TIA), and cerebral infarction without residual deficits
CPT/HCPCS: 36415; 66984; 80048; 85025; J1100; J2003; J2405; J2704; J3010; J7121; V2632